=== PATIENT | female | born 1970 | race Asian ===

== ENCOUNTER 2020-11-19 13:03 | Outpatient (REF) | payer OTHER, SELFPAY ==
[2020-11-19 13:31] LABS: MANUAL DIFF FLAG NO
[2020-11-19 13:33] LABS: Basophils Percent Auto 0.3 % (0-2); Eosinophils Absolute Auto 0.1 X10*3/uL (0.0-0.4); Hematocrit 41.2 % (37-47); Hemoglobin 13.3 g/dl (12.0-16.0); Imm Gran Abs Auto 0.03 X10*3/uL (0.00-0.03); Imm Gran Pct Auto 0.4 % (0.0-0.4); Lymphocytes Absolute Auto 2.2 X10*3/uL (1.2-4.9); Lymphocytes Percent Auto 32.1 % (20-40); Mean Corpuscular HGB Conc 32.3 g/dl (31.0-35.0); Mean Corpuscular Volume 89.8 fL (80-98); Mean Platelet Volume 9.5 fL (9.4-12.3); Monocytes Absolute Auto 0.5 X10*3/uL (0.1-1.2); Monocytes Percent Auto 6.5 % (2-11); Neutrophils Percent Auto 58.7 % (45-73); Platelet Count 393 X10*3/uL (160-400); Red Blood Count 4.59 X10*6/uL (4.20-5.50); Red Cell Distribution Width 12.9 % (11.0-16.0); White Blood Count 6.9 X10*3/uL (4.8-10.8)
[2020-11-19 13:40] LABS: Estimated Average Glucose 114 mg/dL; Hemoglobin A1c % 5.6 %
[2020-11-19 14:03] LABS: Alanine Aminotransferase 17 U/L (0-31); Alkaline Phosphatase 85 U/L (39-117); Anion Gap 11 (12-20); Aspartate Amino Transferase 14 U/L (5-31); Bilirubin Total 0.5 mg/dL (0.0-1.0); Blood Urea Nitrogen 8 mg/dL (9-16); Carbon Dioxide 26 mmol/L (22-29); Chloride 106 mmol/L (96-108); Cholesterol 348 mg/dL; Estimated Glomerular Filt Rate > 60; Glucose Fasting 110 mg/dL (60-99); HDL Cholesterol 48 mg/dL; LDL Cholesterol Calculated 266 mg/dl; Potassium 4.6 mmol/L (3.3-5.1); Sodium 138 mmol/L (135-145); Total Protein 6.7 g/dL (6.5-8.0); Triglycerides 170 mg/dL
[2020-11-19 14:24] LABS: Free T4 (Free Thyroxine) 0.78 ng/dL (0.71-1.85); Thyroid Stimulating Hormone 0.56 uIU/mL (0.32-4.0); Vitamin D 25-OH Total 6.6 ng/mL (>30)
[2020-11-20 09:02] LABS: CA-125 13 U/mL (<35)
== END 2020-11-19 13:04 | disposition home or self-care (01) ==
LOC: HO.LAB 13:03
PROVIDERS: PCP Internal Medicine; Visit Provider Internal Medicine
DX: Z00.00 Encounter for general adult medical examination without abnormal findings (principal); R53.83 Other fatigue; R18.8 Other ascites
CPT/HCPCS: 36415; 80053; 80061; 82306; 82378; 83036; 84439; 84443; 85025; 86304

== ENCOUNTER 2020-11-24 14:22 | Outpatient (REF) | payer OTHER, SELFPAY ==
--- NOTE | ~2020-11-24 | US_ITS ---
EXAMINATION: US PELVIS COMPLETE US TRANSVAGINAL CLINICAL INFORMATION: Postmenopausal bleeding. COMPARISON: None TECHNIQUE: Transabdominal and transvaginal imaging of pelvis was performed. FINDINGS: On transabdominal ultrasound, the uterus is anteverted and anteflexed measuring 7.6 cm in length, 3.07 cm in AP and 4.9 cm in transverse dimension. The endometrial thickness is 0.6 cm. There are small anechoic nabothian cyst seen. There is small endometrial polyp in the fundus with adjacent fluid. The polyp measures 0.8 x 0.6 x 0.9 cm. Right ovary measures 2.7 x 2.0 x 2.0 cm and volume 5.7 mL. There is an anechoic cyst in the right ovary measuring 1.8 x 1.9 x 1.8 cm. Left ovary measures 1.7 x 1.2 x 1.0 cm and volume 1.1 mL. There is no free fluid in the cul-de-sac. US/US transvaginal IMPRESSION: Small anechoic cyst right ovary measuring 1.8 x 1.9 x 1.8 cm. Small nabothian cyst in the cervix. There is a small endometrial polyp measuring 0.8 x 0.6 x 0.9 cm with adjacent fluid.
--- NOTE | ~2020-11-24 | US_ITS ---
EXAMINATION: US PELVIS COMPLETE US TRANSVAGINAL CLINICAL INFORMATION: Postmenopausal bleeding. COMPARISON: None TECHNIQUE: Transabdominal and transvaginal imaging of pelvis was performed. FINDINGS: On transabdominal ultrasound, the uterus is anteverted and anteflexed measuring 7.6 cm in length, 3.07 cm in AP and 4.9 cm in transverse dimension. The endometrial thickness is 0.6 cm. There are small anechoic nabothian cyst seen. There is small endometrial polyp in the fundus with adjacent fluid. The polyp measures 0.8 x 0.6 x 0.9 cm. Right ovary measures 2.7 x 2.0 x 2.0 cm and volume 5.7 mL. There is an anechoic cyst in the right ovary measuring 1.8 x 1.9 x 1.8 cm. Left ovary measures 1.7 x 1.2 x 1.0 cm and volume 1.1 mL. There is no free fluid in the cul-de-sac. US/US pelvic complete IMPRESSION: Small anechoic cyst right ovary measuring 1.8 x 1.9 x 1.8 cm. Small nabothian cyst in the cervix. There is a small endometrial polyp measuring 0.8 x 0.6 x 0.9 cm with adjacent fluid.
== END 2020-11-24 14:23 | disposition home or self-care (01) ==
LOC: HO.US 14:22
PROVIDERS: PCP Internal Medicine; Visit Provider Internal Medicine
DX: N95.0 Postmenopausal bleeding (principal)
CPT/HCPCS: 76830; 76856